=== PATIENT | female | born 1940 | race Caucasian/White ===

== ENCOUNTER 2016-08-24 15:18 | Observation (INO) | payer MEDICARE, MEDICAID ==
[~2016-08-24] VITALS: Ht 154.9 cm; Wt 50.3 kg
[~2016-08-24 15:18] MED LIST: ACET-1757 PO; ACET325T21 PO; ALBU2.5V NPPB; ALBU2.5V11 NEB; ALBU8.5H3 IH; ALPR-475 PO; AMLO10TA2 PO; ASPI1TAB30 PO; ATOR10TA PO; AZIT-14 PO; AZIT500T4 PO; BIFI4CAP PO; BISA10SU2 PR; BISA10SU65 PR; CALC1TAB84 PO; CEFD300C2 PO; CITA20TA9 PO; CLOP75TA22 PO; DIVA125T2 PO; DOCU-30 PO; DOCU100C8 PO; DOXY100T PO; ESOM20CA PO; FURO40TA6 PO; GUAI5SYR PO; HALO2TAB PO; HEPA5000 SQ; HEPA500024 SQ; HYDR-3240 PO; HYDR-3307 PO; HYDR25TA6 PO; IPRA3AMP NPPB; LISI-170 PO; LISI-466 PO; LISI5TAB7 PO; MAGN400T36 PO; MULT-658 PO; NICO1PAT10 TD; OMEP-110 PO; OMEP20TA62 PO; ONDA4TAB10 PO; OXYC-229 PO; OXYC10TA6 PO; OXYGEN INH; POLY454P4 PO; TIOT18CA INH; VITA1TAB42 PO
[2016-08-24] MEDS ORDERED: HYDROcodone/APAP 10/325 MG TABLET PO PRN (16:30)
[2016-08-24] MEDS ORDERED: ONDANSETRON 2MG/ML, 2ML IVPush ONE (16:30)
[2016-08-24] MEDS ORDERED: SODIUM CHLORIDE FLUSH 10ML SYR IVF ONE (16:30)
[2016-08-24] MEDS ORDERED: HYDROcodone/APAP 10/325 MG TABLET ONE (16:41)
[2016-08-24] MEDS ORDERED: ONDANSETRON 2MG/ML, 2ML ONE (16:41)
[2016-08-24 17:04] LABS: ASPARTATE AMINO TRANSFERASE 21 U/L (15-37); BLOOD UREA NITROGEN 14 mg/dL (7-18)
[2016-08-24 17:12] LABS: IS PT STATUS REG ER OR PRE ER? YES
[2016-08-24] MEDS ORDERED: SODIUM CHLORIDE FLUSH 10ML SYR IVF PRN (18:00)
[2016-08-24] MEDS ORDERED: REGADENOSON 0.4 MG/5 ML SYRINGE IVPush ONE (18:30)
[2016-08-24] MEDS ORDERED: NITROGLYCERIN 0.4 MG BOTTLE (25 TABS) SL PRN (18:30)
[2016-08-24] MEDS ORDERED: DOCUSATE 100 MG CAPSULE PO PRN (18:30)
[2016-08-24] MEDS ORDERED: TEMPLATE NON-FORMULARY MED. ([Oxygen] 2 L) INH SCH (18:30)
[2016-08-24] MEDS ORDERED: ONDANSETRON ODT 4 MG PO PRN (18:30)
[2016-08-24] MEDS ORDERED: POLYETHYLENE GLYCOL 17 GM PACKET PO PRN (18:30)
[2016-08-24] MEDS ORDERED: TEMAZEPAM 15 MG CAPSULE PO PRN (18:30)
[2016-08-24] MEDS ORDERED: POLYETHYLENE GLYCOL 17 GM PO PRN (18:30)
[2016-08-24] MEDS ORDERED: ACETAMINOPHEN 325 MG TABLET PO PRN (18:30)
[2016-08-24] MEDS ORDERED: ALBUTEROL SULFATE 2.5MG/0.5ML NEB PRN (18:30)
[2016-08-24 20:29] VITALS: BP 137/57
[2016-08-24] MEDS ORDERED: HYDROcodone/APAP 5/325 TABLET PO SCH (21:00)
[2016-08-24] MEDS ORDERED: TEMPLATE NON-FORMULARY MED. (Albuterol Sulfate (Proair Hfa) 1 PUFF) IH SCH (21:00)
[2016-08-24] MEDS ORDERED: ATORVASTATIN 10 MG TABLET PO SCH (21:00)
[2016-08-24 21:04] LABS: IS PT STATUS REG ER OR PRE ER? NO
[2016-08-24] MEDS ORDERED: CLOPIDOGREL 75 MG TABLET PO SCH (21:30)
[2016-08-24] MEDS: IPRATROPIUM 0.5 MG/2.5 ML INHA HHN SCH (22:05)
[2016-08-24] MEDS: CALCIUM/VITAMIN D3 250-125 TABLET PO SCH (23:04)
[2016-08-24] MEDS: HYDROcodone/APAP 10/325 MG TABLET PO PRN (23:04)
[2016-08-24] MEDS: HEPARIN 5,000 UNITS/ML, 1ML SQ SCH (23:04)
[2016-08-25 01:34] VITALS: BP 177/70
[2016-08-25 02:31] LABS: BLOOD UREA NITROGEN 20 mg/dL (7-18)
[2016-08-25] MEDS: IPRATROPIUM 0.5 MG/2.5 ML INHA HHN SCH ×3 (03:00→14:30)
[2016-08-25 03:07] LABS: IS PT STATUS REG ER OR PRE ER? NO
[2016-08-25 06:54] VITALS: BP 208/74
[2016-08-25 07:20] VITALS: BP 176/66
[2016-08-25 07:50] VITALS: BP 151/61
[2016-08-25] MEDS ORDERED: REGADENOSON 0.4 MG/5 ML SYRINGE ONE (08:18)
[2016-08-25] MEDS ORDERED: CLOPIDOGREL 75 MG TABLET PO SCH (09:00)
[2016-08-25] MEDS ORDERED: TEMPLATE NON-FORMULARY MED. (Bifidobacterium Infantis** (Align**) 4 MG) PO SCH (09:00)
[2016-08-25] MEDS ORDERED: MULTIVITS,STRESS FORMULA 1 TABLET PO SCH (09:00)
[2016-08-25] MEDS: SENNA/DOCUSATE TABLET PO SCH ×2 (10:15→14:34)
[2016-08-25] MEDS: AMLODIPINE 5 MG TABLET PO SCH ×2 (10:15→15:52)
[2016-08-25] MEDS: CALCIUM/VITAMIN D3 250-125 TABLET PO SCH ×2 (10:15→14:34)
[2016-08-25] MEDS: MULTIVITAMIN 1 TABLET PO SCH ×2 (10:15→14:35)
[2016-08-25] MEDS: MAGNESIUM OXIDE 400 MG TABLET PO SCH ×2 (10:16→14:34)
[2016-08-25] MEDS: OMEPRAZOLE 20 MG CAPSULE.DR PO SCH ×2 (10:16→14:34)
[2016-08-25] MEDS: LISINOPRIL 5 MG TABLET PO SCH ×2 (10:16→14:35)
[2016-08-25] MEDS: HEPARIN 5,000 UNITS/ML, 1ML SQ SCH ×2 (10:17→14:35)
[2016-08-25] MEDS ORDERED: ENALAPRILAT 1.25 MG/ML, 2ML IVPush PRN (11:00)
[2016-08-25 14:00] VITALS: BP 170/76
[2016-08-25] MEDS: HYDROcodone/APAP 10/325 MG TABLET PO PRN (14:34)
[2016-08-25] MEDS ORDERED: CITA10TA8 PO (14:38)
[2016-08-25 14:54] LABS: PATH.CAST-FLAG NOT PRESENT; SPERM-FLAG NOT PRESENT; SRC-FLAG NOT PRESENT; XTAL-FLAG NOT PRESENT; YLC-FLAG NOT PRESENT
[2016-08-25] MEDS ORDERED: LISI5TAB7 PO (14:57)
[2016-08-25] MEDS ORDERED: LISINOPRIL 5 MG TABLET PO ONE (15:00)
[2016-08-26] MEDS ORDERED: LISINOPRIL 10 MG TABLET PO SCH (09:00)
== END 2016-08-25 18:17 | disposition home or self-care (01) ==
LOC: ED 17:46 → UNDOADMOB 17:47 → INTOOBSV 17:47 → EDIP 17:47 → ED 17:52 → EDIP 18:04 → 5SO 20:19
PROVIDERS: ADMIT Internal Medicine; ATTEND Internal Medicine
DX: R07.89 Other chest pain (principal); J44.9 Chronic obstructive pulmonary disease, unspecified; J96.10 Chronic respiratory failure, unspecified whether with hypoxia or hypercapnia; R53.81 Other malaise; R53.1 Weakness; I25.110 Atherosclerotic heart disease of native coronary artery with unstable angina pectoris; G20 Parkinson's disease; I10 Essential (primary) hypertension; E78.5 Hyperlipidemia, unspecified; R29.6 Repeated falls; M54.2 Cervicalgia; G89.29 Other chronic pain; F17.210 Nicotine dependence, cigarettes, uncomplicated; I25.2 Old myocardial infarction; M54.9 Dorsalgia, unspecified; Z95.5 Presence of coronary angioplasty implant and graft; Z85.3 Personal history of malignant neoplasm of breast; Z98.890 Other specified postprocedural states; Z82.49 Family history of ischemic heart disease and other diseases of the circulatory system; Z90.13 Acquired absence of bilateral breasts and nipples; Z99.81 Dependence on supplemental oxygen
CPT/HCPCS: 36415; 71010; 78452; 80048; 80053; 81001; 82607; 83690; 83735; 83880; 84484; 85025; 93005; 93017; 93880; 94640; 96372; 99285; A9502; C9898; G0378; J1644; J2785; Q0162; J7644

== ENCOUNTER 2016-12-01 19:56 | Inpatient (IN) | payer MEDICARE, MEDICAID ==
[~2016-12-01] VITALS: Ht 157.5 cm; Wt 47.8 kg
[~2016-12-01 19:56] MED LIST changes: -AZIT-14 PO; +AZIT250T89 PO; -AZIT500T4 PO; +AZIT500T77 PO; -CEFD300C2 PO; +CEFD300C37 PO; +CITA10TA8 PO
[2016-12-01] MEDS ORDERED: ONDANSETRON ODT 4 MG ONE (20:06)
[2016-12-01] MEDS ORDERED: SODIUM CHLORIDE 0.9% 1,000ML IVBOLUS ONE (20:30)
[2016-12-01] MEDS ORDERED: ONDANSETRON ODT 4 MG PO ONE (20:30)
[2016-12-01] MEDS ORDERED: SODIUM CHLORIDE FLUSH 10ML SYR IVF ONE (20:30)
[2016-12-01 20:54] LABS: ASPARTATE AMINO TRANSFERASE 27 U/L (15-37); BLOOD UREA NITROGEN 18 mg/dL (7-18)
[2016-12-01] MEDS ORDERED: METOCLOPRAMIDE 5 MG/ML, 2ML IVPush ONE (23:00)
[2016-12-01] MEDS ORDERED: MORPHINE SULFATE 4 MG/ML, 1ML IVPush ONE (23:00)
[2016-12-01] MEDS ORDERED: MORPHINE SULFATE 4 MG/ML, 1ML ONE (23:07)
[2016-12-01] MEDS ORDERED: METOCLOPRAMIDE 5 MG/ML, 2ML ONE (23:08)
[2016-12-01] MEDS ORDERED: BIFI4CAP PO (23:17)
[2016-12-01] MEDS ORDERED: CITA20TA9 PO (23:17)
[2016-12-01] MEDS ORDERED: NITR100C PO (23:17)
[2016-12-01] MEDS ORDERED: MAGN250T8 PO (23:17)
[2016-12-01] MEDS ORDERED: VITA100T PO (23:17)
[2016-12-01] MEDS ORDERED: LISI-167 PO (23:17)
[2016-12-01] MEDS ORDERED: CLOP75TA PO (23:17)
[2016-12-01] MEDS ORDERED: IBUP200C PO (23:17)
[2016-12-01] MEDS ORDERED: vitafusion PO (23:17)
[2016-12-01] MEDS ORDERED: METH5TAB2 PO (23:17)
[2016-12-01] MEDS ORDERED: PROMETHAZINE 25 MG/ML, 1ML IM PRN (23:30)
[2016-12-01] MEDS ORDERED: morphine SULFATE 10 MG/ML, 1ML IVPush PRN (23:30)
[2016-12-01] MEDS ORDERED: POLYETHYLENE GLYCOL 17 GM PACKET PO PRN (23:30)
[2016-12-01] MEDS ORDERED: ACETAMINOPHEN 325 MG TABLET PO PRN (23:30)
[2016-12-01] MEDS ORDERED: DOCUSATE 100 MG CAPSULE PO PRN (23:30)
[2016-12-01] MEDS ORDERED: TEMPLATE NON-FORMULARY MED. ([Oxygen] 2 L) INH SCH (23:30)
[2016-12-01] MEDS ORDERED: ALBUTEROL SULFATE 2.5MG/0.5ML NEB PRN (23:30)
[2016-12-01] MEDS ORDERED: hydrALAzine 20 MG/ML, 1ML IV PRN (23:30)
[2016-12-01] MEDS ORDERED: ASA/APAP/ CAFFEINE TABLET PO PRN (23:30)
[2016-12-01] MEDS ORDERED: LABETALOL 5MG/ML, 20ML IVPush PRN (23:30)
[2016-12-01] MEDS: NICOTINE 7 MG/24 HR PATCH.TD24 TD SCH (23:30)
[2016-12-01] MEDS ORDERED: ENALAPRILAT 1.25 MG/ML, 2ML IV PRN (23:30)
[2016-12-01] MEDS ORDERED: hydrALAzine 20 MG/ML, 1ML ONE (23:55)
[2016-12-02] MEDS ORDERED: ALBUTEROL/IPRATROPIUM 2.5MG/0.5MG, 3 ML ONE (00:54)
[2016-12-02 00:55] VITALS: BP 169/68
[2016-12-02] MEDS: NS + 20MEQ KCL 1,000 ML IV SCH ×2 (01:21→10:15)
[2016-12-02] MEDS: ONDANSETRON 2MG/ML, 2ML IVPush PRN (01:23)
[2016-12-02] MEDS ORDERED: ALBUTEROL/IPRATROPIUM 2.5MG/0.5MG, 3 ML NPPB PRN (02:00)
[2016-12-02 05:29] LABS: BLOOD UREA NITROGEN 16 mg/dL (7-18)
[2016-12-02 08:20] VITALS: BP 186/85
[2016-12-02] MEDS: IPRATROPIUM 0.5 MG/2.5 ML INHA HHN SCH ×2 (09:00→15:00)
[2016-12-02] MEDS ORDERED: HYDROcodone/APAP 5/325 TABLET PO SCH (09:00)
[2016-12-02] MEDS ORDERED: TEMPLATE NON-FORMULARY MED. (Albuterol Sulfate (Proair Hfa) 1 PUFF) IH SCH (09:00)
[2016-12-02] MEDS: MULTIVITAMIN 1 TABLET PO SCH (09:19)
[2016-12-02] MEDS: FAMOTIDINE 20 MG TABLET PO SCH ×2 (09:19→23:41)
[2016-12-02] MEDS: LISINOPRIL 10 MG TABLET PO SCH (09:19)
[2016-12-02] MEDS: HYDROcodone/APAP 5/325 TABLET PO PRN ×4 (09:19→22:42)
[2016-12-02] MEDS: CLOPIDOGREL 75 MG TABLET PO SCH (09:19)
[2016-12-02] MEDS: AMLODIPINE 5 MG TABLET PO SCH (09:19)
[2016-12-02] MEDS: MAGNESIUM OXIDE 400 MG TABLET PO SCH (09:19)
[2016-12-02] MEDS: ALBUTEROL/IPRATROPIUM 2.5MG/0.5MG, 3 ML NPPB SCH ×3 (09:56→20:47)
[2016-12-02 12:18] LABS: OCCBLD OBC PASS
[2016-12-02] MEDS: CITALOPRAM 10 MG TABLET PO SCH (14:13)
[2016-12-02 14:30] VITALS: BP 154/74
[2016-12-02] MEDS ORDERED: METHADONE 5 MG TABLET PO SCH (15:00)
[2016-12-02 20:38] VITALS: BP 153/56
[2016-12-02] MEDS: NICOTINE 7 MG/24 HR PATCH.TD24 TD SCH (22:42)
[2016-12-02] MEDS: ATORVASTATIN 10 MG TABLET PO SCH (23:41)
[2016-12-03 02:14] VITALS: BP 137/58
[2016-12-03] MEDS: ALBUTEROL/IPRATROPIUM 2.5MG/0.5MG, 3 ML NPPB SCH ×4 (02:31→21:00)
[2016-12-03] MEDS: HYDROcodone/APAP 5/325 TABLET PO PRN ×4 (05:19→20:01)
[2016-12-03 06:10] LABS: BLOOD UREA NITROGEN 8 mg/dL (7-18)
[2016-12-03] MEDS ORDERED: POTASSIUM CHLORIDE 10 MEQ TABLET.ER ONE (08:26)
[2016-12-03] MEDS ORDERED: POTASSIUM CHLORIDE 20 MEQ TAB.ER.PRT PO ONE (08:30)
[2016-12-03] MEDS: LISINOPRIL 10 MG TABLET PO SCH (08:44)
[2016-12-03] MEDS: MULTIVITAMIN 1 TABLET PO SCH (08:44)
[2016-12-03] MEDS: MAGNESIUM OXIDE 400 MG TABLET PO SCH (08:44)
[2016-12-03] MEDS: FAMOTIDINE 20 MG TABLET PO SCH ×2 (08:44→20:02)
[2016-12-03] MEDS: AMLODIPINE 5 MG TABLET PO SCH (08:44)
[2016-12-03] MEDS: CLOPIDOGREL 75 MG TABLET PO SCH (08:44)
[2016-12-03 10:14] VITALS: BP 187/76
[2016-12-03] MEDS: CITALOPRAM 10 MG TABLET PO SCH (11:01)
[2016-12-03 14:24] VITALS: BP 138/72
[2016-12-03] MEDS: ATORVASTATIN 10 MG TABLET PO SCH (20:01)
[2016-12-03] MEDS: NICOTINE 7 MG/24 HR PATCH.TD24 TD SCH (20:02)
[2016-12-03 20:11] VITALS: BP 97/56
[2016-12-03 21:46] VITALS: BP 113/52
[2016-12-04] MEDS: HYDROcodone/APAP 5/325 TABLET PO PRN ×3 (00:06→11:48)
[2016-12-04 02:10] VITALS: BP 127/65
[2016-12-04] MEDS: ALBUTEROL/IPRATROPIUM 2.5MG/0.5MG, 3 ML NPPB SCH ×2 (03:00→07:37)
[2016-12-04] MEDS ORDERED: POTASSIUM CHLORIDE 20 MEQ TAB.ER.PRT PO ONE (07:30)
[2016-12-04] MEDS: AMLODIPINE 5 MG TABLET PO SCH (07:43)
[2016-12-04] MEDS: FAMOTIDINE 20 MG TABLET PO SCH (07:43)
[2016-12-04] MEDS: CLOPIDOGREL 75 MG TABLET PO SCH (07:43)
[2016-12-04] MEDS: MAGNESIUM OXIDE 400 MG TABLET PO SCH (07:43)
[2016-12-04] MEDS: MULTIVITAMIN 1 TABLET PO SCH (07:43)
[2016-12-04] MEDS: LISINOPRIL 10 MG TABLET PO SCH (07:43)
[2016-12-04 07:59] VITALS: BP 183/70
[2016-12-04 09:40] LABS: BLOOD UREA NITROGEN 20 mg/dL (7-18)
[2016-12-04] MEDS ORDERED: ONDANSETRON ODT 4 MG ONE (11:17)
[2016-12-04] MEDS: CITALOPRAM 10 MG TABLET PO SCH (11:17)
[2016-12-04] MEDS: ONDANSETRON 2MG/ML, 2ML IVPush PRN (11:18)
== END 2016-12-04 15:32 | disposition home or self-care (01) | DRG 392 ==
LOC: ED 20:50 → EDIP 22:58 → SUATTDRO 22:59 → 3NE 12-02 00:17
PROVIDERS: ADMIT Family Medicine; ATTEND Family Medicine
DX: A08.4 Viral intestinal infection, unspecified (principal); J44.9 Chronic obstructive pulmonary disease, unspecified; I16.0 Hypertensive urgency; E86.0 Dehydration; E87.6 Hypokalemia; G89.29 Other chronic pain; M54.2 Cervicalgia; F17.200 Nicotine dependence, unspecified, uncomplicated; I10 Essential (primary) hypertension; J98.4 Other disorders of lung; I25.10 Atherosclerotic heart disease of native coronary artery without angina pectoris; J32.9 Chronic sinusitis, unspecified; Z66 Do not resuscitate; Z82.49 Family history of ischemic heart disease and other diseases of the circulatory system; Z85.3 Personal history of malignant neoplasm of breast; Z90.13 Acquired absence of bilateral breasts and nipples; Z87.01 Personal history of pneumonia (recurrent); Z79.899 Other long term (current) drug therapy; Z79.02 Long term (current) use of antithrombotics/antiplatelets; Z88.0 Allergy status to penicillin; I25.2 Old myocardial infarction; Z88.2 Allergy status to sulfonamides; Z88.1 Allergy status to other antibiotic agents; Z88.8 Allergy status to other drugs, medicaments and biological substances
CPT/HCPCS: 36415; 71010; 74176; 80048; 80053; 81003; 82272; 83690; 83735; 85025; 87046; 87324; 89055; 93005; 94640; 96374; 96375; J2405; J3480; J7620; Q0162; J0360; J2270; J2765; J7030

== ENCOUNTER 2017-03-30 13:11 | Inpatient (IN) | payer MEDICARE, MEDICAID ==
[~2017-03-30] VITALS: Ht 154.9 cm; Wt 47.6 kg
[~2017-03-30 13:11] MED LIST changes: -ALBU8.5H3 IH; +ALBU8.5H8 IH; -ASPI1TAB30 PO; +ASPI1TAB31 PO; +AZIT500T5 PO; -AZIT500T77 PO; +CLOP75TA PO; -CLOP75TA22 PO; +CLOP75TA52 PO; +DOCU-131 PO; -DOCU-30 PO; +DOCU100C33 PO; -DOCU100C8 PO; -HEPA5000 SQ; +HEPA50002 SQ; +IBUP200C5 PO; +LISI-167 PO; +MAGN250T8 PO; +METH5TAB2 PO; +NICO-485 TD; -NICO1PAT10 TD; +NITR100C PO; -OXYC-229 PO; +OXYC-307 PO; +VITA100T PO; +vitafusion PO
[2017-03-30] MEDS ORDERED: ACETAMINOPHEN 500 MG TABLET PO ONE (13:30)
[2017-03-30 14:59] LABS: HEMATOCRIT 37.7 % (34.6-47.8); HEMOGLOBIN 12.8 g/dL (11.7-16.4); WHITE BLOOD COUNT 7.7 x10^3/uL (3.4-10)
[2017-03-30] MEDS ORDERED: CYCLOPENTOLATE OPHTH SOLN 1%, 15ML OP ONE (15:00)
[2017-03-30 15:12] LABS: BLOOD UREA NITROGEN 18 mg/dL (7-18)
[2017-03-30] MEDS ORDERED: ACETAMINOPHEN 325 MG TABLET PO PRN (17:00)
[2017-03-30] MEDS ORDERED: LORazepam 2 MG/ML, 1ML ONE (17:05)
[2017-03-30] MEDS ORDERED: LORazepam 2 MG/ML, 1ML IM ONE (17:15)
[2017-03-30] MEDS ORDERED: LORazepam 2 MG/ML, 1ML IM PRN (18:30)
[2017-03-30] MEDS ORDERED: HALOPERIDOL 5 MG/ML IM PRN (18:30)
[2017-03-30 20:19] VITALS: BP 166/82
[2017-03-30] MEDS: ENOXAPARIN 40 MG/0.4 ML SQ SCH (20:38)
[2017-03-30] MEDS: SODIUM CHLORIDE 0.9% 1,000 ML IV SCH (20:38)
[2017-03-30] MEDS: NICOTINE 21 MG/24 HR PATCH.TD24 TD SCH (20:39)
[2017-03-31] VITALS (7 sets, daily range): BP systolic 127–197; BP diastolic 61–98
[2017-03-31] MEDS: HYDROcodone/APAP 5/325 TABLET PO PRN ×6 (01:42→22:24)
[2017-03-31 06:13] LABS: HEMATOCRIT 36.4 % (34.6-47.8); HEMOGLOBIN 12.2 g/dL (11.7-16.4); WHITE BLOOD COUNT 7.3 x10^3/uL (3.4-10)
[2017-03-31 06:43] LABS: ASPARTATE AMINO TRANSFERASE 16 U/L (15-37); BLOOD UREA NITROGEN 16 mg/dL (7-18)
[2017-03-31] MEDS: hydrALAzine 20 MG/ML, 1ML IVPush PRN ×2 (10:27→18:49)
[2017-03-31] MEDS: SODIUM CHLORIDE 0.9% 1,000 ML IV SCH ×2 (10:36→22:24)
[2017-03-31] MEDS: ONDANSETRON 2MG/ML, 2ML IVPush PRN ×2 (13:17→18:48)
[2017-03-31] MEDS: NICOTINE 21 MG/24 HR PATCH.TD24 TD SCH (19:14)
[2017-03-31] MEDS: morphine SULFATE 10 MG/ML, 1ML IVPush PRN (20:34)
[2017-03-31] MEDS: LISINOPRIL 20 MG TABLET PO SCH (22:24)
[2017-03-31] MEDS: ENOXAPARIN 40 MG/0.4 ML SQ SCH (22:24)
[2017-03-31] MEDS ORDERED: PROMETHAZINE 25 MG/ML, 1ML ONE (23:09)
[2017-03-31] MEDS: PROMETHAZINE 25 MG/ML, 1ML IM PRN (23:13)
[2017-03-31] MEDS ORDERED: ALUMINUM/MAG/SIMETHICONE 30 ML UDC PO PRN (23:30)
[2017-04-01] VITALS (7 sets, daily range): BP systolic 109–179; BP diastolic 54–68
[2017-04-01] MEDS: HYDROcodone/APAP 5/325 TABLET PO PRN ×4 (02:32→21:49)
[2017-04-01] MEDS: hydrALAzine 20 MG/ML, 1ML IVPush PRN (03:44)
[2017-04-01] MEDS: PROMETHAZINE 25 MG/ML, 1ML IM PRN ×2 (04:41→23:00)
[2017-04-01] MEDS: LISINOPRIL 20 MG TABLET PO SCH ×2 (08:53→21:49)
[2017-04-01] MEDS: POLYETHYLENE GLYCOL 17 GM PACKET PO PRN (13:50)
[2017-04-01] MEDS: SODIUM CHLORIDE 0.9% 1,000 ML IV SCH (16:32)
[2017-04-01] MEDS: NICOTINE 21 MG/24 HR PATCH.TD24 TD SCH (18:00)
[2017-04-01] MEDS: ENOXAPARIN 40 MG/0.4 ML SQ SCH (21:49)
[2017-04-01] MEDS: morphine SULFATE 10 MG/ML, 1ML IVPush PRN (22:59)
[2017-04-02 04:41] VITALS: BP 156/70
[2017-04-02] MEDS: SODIUM CHLORIDE 0.9% 1,000 ML IV SCH ×2 (05:56→19:45)
[2017-04-02] MEDS: METOPROLOL SUCCINATE 50 MG TAB.ER.24H PO SCH (05:57)
[2017-04-02] MEDS: HYDROcodone/APAP 5/325 TABLET PO PRN ×3 (06:06→14:16)
[2017-04-02 06:42] VITALS: BP 161/63
[2017-04-02] MEDS: LISINOPRIL 20 MG TABLET PO SCH ×2 (09:10→21:10)
[2017-04-02 13:21] VITALS: BP 123/62
[2017-04-02] MEDS: NICOTINE 21 MG/24 HR PATCH.TD24 TD SCH (17:10)
[2017-04-02 20:55] VITALS: BP 133/68
[2017-04-02] MEDS: HYDROcodone/APAP 10/325 MG TABLET PO PRN (21:10)
[2017-04-02] MEDS: ENOXAPARIN 40 MG/0.4 ML SQ SCH (21:14)
[2017-04-03 01:09] VITALS: BP 116/47
[2017-04-03] MEDS: HYDROcodone/APAP 10/325 MG TABLET PO PRN ×6 (02:36→22:15)
[2017-04-03] MEDS: METOPROLOL SUCCINATE 50 MG TAB.ER.24H PO SCH (06:27)
[2017-04-03 06:28] VITALS: BP 130/66
[2017-04-03 06:44] VITALS: BP 130/66
[2017-04-03] MEDS: LISINOPRIL 20 MG TABLET PO SCH ×2 (09:59→20:57)
[2017-04-03] MEDS: POLYETHYLENE GLYCOL 17 GM PACKET PO PRN (09:59)
[2017-04-03] MEDS: SODIUM CHLORIDE 0.9% 1,000 ML IV SCH (09:59)
[2017-04-03 13:40] VITALS: BP 177/55
[2017-04-03] MEDS: NICOTINE 21 MG/24 HR PATCH.TD24 TD SCH (16:59)
[2017-04-03] MEDS ORDERED: ALBUTEROL/IPRATROPIUM 2.5MG/0.5MG, 3 ML ONE (19:52)
[2017-04-03] MEDS: ALBUTEROL/IPRATROPIUM 2.5MG/0.5MG, 3 ML NPPB SCH (19:55)
[2017-04-03 20:08] VITALS: BP 155/70
[2017-04-03] MEDS: ENOXAPARIN 40 MG/0.4 ML SQ SCH (20:57)
[2017-04-04 00:31] VITALS: BP 149/68
[2017-04-04] MEDS: METOPROLOL SUCCINATE 50 MG TAB.ER.24H PO SCH (05:55)
[2017-04-04 06:43] VITALS: BP 191/72
[2017-04-04] MEDS: ALBUTEROL/IPRATROPIUM 2.5MG/0.5MG, 3 ML NPPB SCH ×4 (07:32→19:41)
[2017-04-04] MEDS: LISINOPRIL 20 MG TABLET PO SCH ×2 (09:24→21:00)
[2017-04-04] MEDS: HYDROcodone/APAP 10/325 MG TABLET PO PRN ×4 (09:24→21:57)
[2017-04-04] MEDS: hydrALAzine 20 MG/ML, 1ML IVPush PRN (09:25)
[2017-04-04] MEDS: POLYETHYLENE GLYCOL 17 GM PACKET PO PRN (09:25)
[2017-04-04] MEDS ORDERED: NICO-487 TD (09:33)
[2017-04-04] MEDS ORDERED: AMLO5TAB4 PO (09:33)
[2017-04-04] MEDS ORDERED: METO-93 PO (09:33)
[2017-04-04] MEDS ORDERED: LISI-170 PO (09:33)
[2017-04-04] MEDS: PROMETHAZINE 25 MG/ML, 1ML IM PRN (09:45)
[2017-04-04 10:30] VITALS: BP 130/63
[2017-04-04] MEDS ORDERED: DIPHENHYDRAMINE 50 MG/ML, 1ML ONE (12:43)
[2017-04-04] MEDS ORDERED: FLU VACC QS2017-18 (36MOS+) UP/PF 0.5 ML IM-VACC ONE (13:00)
[2017-04-04] MEDS ORDERED: DIPHENHYDRAMINE 50 MG/ML, 1ML IVPush ONE (13:00)
[2017-04-04] MEDS ORDERED: DIPHENHYDRAMINE 25 MG CAPSULE PO ONE (13:00)
[2017-04-04 13:49] VITALS: BP 111/70
[2017-04-04] MEDS: NICOTINE 21 MG/24 HR PATCH.TD24 TD SCH (18:00)
[2017-04-04 19:34] VITALS: BP 101/59
[2017-04-04] MEDS: ENOXAPARIN 40 MG/0.4 ML SQ SCH ×2 (21:00→21:58)
[2017-04-05 01:16] VITALS: BP 147/68
[2017-04-05] MEDS: HYDROcodone/APAP 10/325 MG TABLET PO PRN ×5 (02:08→20:36)
[2017-04-05] MEDS: METOPROLOL SUCCINATE 50 MG TAB.ER.24H PO SCH (05:02)
[2017-04-05 06:36] VITALS: BP 196/76
[2017-04-05] MEDS: ALBUTEROL/IPRATROPIUM 2.5MG/0.5MG, 3 ML NPPB SCH ×6 (07:30→20:00)
[2017-04-05] MEDS: LISINOPRIL 20 MG TABLET PO SCH ×2 (07:43→20:37)
[2017-04-05 12:18] VITALS: BP 188/97
[2017-04-05] MEDS: POLYETHYLENE GLYCOL 17 GM PACKET PO PRN (12:55)
[2017-04-05 13:00] VITALS: BP 188/78
[2017-04-05] MEDS ORDERED: ENALAPRILAT 1.25 MG/ML, 2ML IV PRN (14:30)
[2017-04-05] MEDS: NICOTINE 21 MG/24 HR PATCH.TD24 TD SCH (16:42)
[2017-04-05 17:20] VITALS: BP 168/78
[2017-04-05 20:01] VITALS: BP 127/60
[2017-04-05] MEDS: ENOXAPARIN 40 MG/0.4 ML SQ SCH (20:36)
[2017-04-05] MEDS: AMLODIPINE 5 MG TABLET PO SCH (20:37)
[2017-04-06] MEDS: HYDROcodone/APAP 10/325 MG TABLET PO PRN ×6 (00:21→23:58)
[2017-04-06 00:45] VITALS: BP 179/66
[2017-04-06 02:32] VITALS: BP 107/48
[2017-04-06] MEDS: METOPROLOL SUCCINATE 50 MG TAB.ER.24H PO SCH (05:55)
[2017-04-06] MEDS: ALBUTEROL/IPRATROPIUM 2.5MG/0.5MG, 3 ML NPPB SCH ×4 (06:54→17:32)
[2017-04-06 07:45] VITALS: BP 165/64
[2017-04-06] MEDS: AMLODIPINE 5 MG TABLET PO SCH ×2 (09:58→20:09)
[2017-04-06] MEDS: LISINOPRIL 20 MG TABLET PO SCH ×2 (09:58→20:01)
[2017-04-06 13:21] VITALS: BP 118/55
[2017-04-06] MEDS: POLYETHYLENE GLYCOL 17 GM PACKET PO PRN (14:26)
[2017-04-06] MEDS: NICOTINE 21 MG/24 HR PATCH.TD24 TD SCH (18:00)
[2017-04-06 19:36] VITALS: BP 109/61
[2017-04-06] MEDS: ENOXAPARIN 40 MG/0.4 ML SQ SCH (20:09)
[2017-04-07] MEDS ORDERED: DIPHENHYDRAMINE 50 MG CAPSULE PO ONE
[2017-04-07 03:13] VITALS: BP 113/56
[2017-04-07] MEDS: METOPROLOL SUCCINATE 50 MG TAB.ER.24H PO SCH (05:45)
[2017-04-07 07:17] VITALS: BP 144/61
[2017-04-07] MEDS: ALBUTEROL/IPRATROPIUM 2.5MG/0.5MG, 3 ML NPPB SCH ×2 (07:30→10:50)
[2017-04-07] MEDS: LISINOPRIL 20 MG TABLET PO SCH (09:00)
[2017-04-07] MEDS: HYDROcodone/APAP 10/325 MG TABLET PO PRN (09:00)
[2017-04-07] MEDS: AMLODIPINE 5 MG TABLET PO SCH (09:00)
[2017-04-07] MEDS ORDERED: AMLO10TA2 PO (11:15)
[2017-04-07] MEDS ORDERED: NICO-487 TD (11:18)
[2017-04-07] MEDS: PROMETHAZINE 25 MG/ML, 1ML IM PRN (12:23)
== END 2017-04-07 12:45 | disposition home or self-care (01) | DRG 70 ==
LOC: ED 15:51 → EDIP 15:52 → SUATTDRO 16:04 → ED 16:50 → 4EST 17:40 → 3NW 04-02 10:47
PROVIDERS: ADMIT Family Medicine; ATTEND Internal Medicine
PROC: 0T9B70Z Drainage of Bladder with Drainage Device, Via Natural or Artificial Opening (ICD-10-PCS; principal; 2017-03-30)
DX: G93.41 Metabolic encephalopathy (principal); J96.20 Acute and chronic respiratory failure, unspecified whether with hypoxia or hypercapnia; Z99.81 Dependence on supplemental oxygen; J44.9 Chronic obstructive pulmonary disease, unspecified; M41.9 Scoliosis, unspecified; I10 Essential (primary) hypertension; E78.5 Hyperlipidemia, unspecified; I25.10 Atherosclerotic heart disease of native coronary artery without angina pectoris; H91.90 Unspecified hearing loss, unspecified ear; M16.11 Unilateral primary osteoarthritis, right hip; R47.02 Dysphasia; Z79.891 Long term (current) use of opiate analgesic; Z80.3 Family history of malignant neoplasm of breast; Z85.3 Personal history of malignant neoplasm of breast; Z87.440 Personal history of urinary (tract) infections; Z87.442 Personal history of urinary calculi; Z87.891 Personal history of nicotine dependence; Z90.13 Acquired absence of bilateral breasts and nipples; Z90.710 Acquired absence of both cervix and uterus; Z91.81 History of falling; Z95.5 Presence of coronary angioplasty implant and graft; Z99.3 Dependence on wheelchair; Z79.899 Other long term (current) drug therapy; Z88.0 Allergy status to penicillin; Z88.2 Allergy status to sulfonamides; Z88.8 Allergy status to other drugs, medicaments and biological substances; Z91.041 Radiographic dye allergy status; Z23 Encounter for immunization
CPT/HCPCS: 36415; 70450; 70551; 71010; 76705; 80048; 80053; 81003; 82040; 83735; 84100; 84439; 84443; 85025; 85610; 85651; 87040; 90686; 93005; 94640; 96372; J1650; J2405; J2550; J7620; J0360; J1200; J1630; J2060; J2270; J7030

== ENCOUNTER 2017-04-18 10:35 | Inpatient (IN) | payer MEDICARE, MEDICAID ==
[~2017-04-18] VITALS: Ht 160 cm; Wt 50.0 kg
[~2017-04-18 10:35] MED LIST changes: +AMLO5TAB4 PO; +METO-93 PO; +NICO-487 TD
[2017-04-18] MEDS ORDERED: SODIUM CHLORIDE 0.9% 1,000 ML IV ONE (11:33)
[2017-04-18] MEDS ORDERED: SODIUM CHLORIDE FLUSH 10ML SYR IVF ONE (12:00)
[2017-04-18 12:04] LABS: BASOPHILS # (AUTO) 0.01 x10^3/uL (0-0.1); BASOPHILS % (AUTO) 0 % (0-1); EOSINOPHILS # (AUTO) 0.01 x10^3/uL (0-0.4); EOSINOPHILS % (AUTO) 0 % (1-7); LYMPHOCYTES # (AUTO) 0.88 x10^3/uL (1-3.4); LYMPHOCYTES % (AUTO) 6 % (22-44); MD NO; MEAN CORPUSCULAR HEMOGLOBIN 33.5 pg (27.0-34.8); MEAN CORPUSCULAR HGB CONC 34.2 g/dL (32.4-35.8); MEAN CORPUSCULAR VOLUME 97.9 fL (80-100); MEAN PLATELET VOLUME 8.8 fL (7.4-10.4); MONOCYTES # (AUTO) 0.78 x10^3/uL (0.2-0.8); MONOCYTES % (AUTO) 5 % (2-9); NEUTROPHILS # (AUTO) 14.14 x10^3/uL (1.8-6.8); NEUTROPHILS % (AUTO) 90 % (42-75); PLATELET COUNT 202 x10^3/uL (130-400); RED CELL DISTRIBUTION WIDTH 15.1 % (9.6-15.2)
[2017-04-18 12:10] LABS: MICROSCOPIC NOT IND
[2017-04-18 12:14] LABS: CULTURE INDICATED? NO
[2017-04-18 12:15] LABS: ALANINE AMINOTRANSFERASE 17 U/L (12-78); ALBUMIN 3.5 g/dL (3.4-5.0); ANION GAP 8 mmol/L (5-15); CALCIUM 8.3 mg/dL (8.5-10.1); CHLORIDE 106 mmol/L (98-107)
[2017-04-18 12:18] LABS: ALKALINE PHOSPHATASE 64 U/L (45-117); BILIRUBIN,TOTAL 0.6 mg/dL (0.2-1.0); CREATININE 0.77 mg/dL (0.55-1.02); TOTAL PROTEIN 6.5 g/dL (6.4-8.2)
[2017-04-18] MEDS ORDERED: SODIUM CHLORIDE 0.9% 1,000ML IVBOLUS ONE (12:30)
[2017-04-18] MEDS: HALOPERIDOL 5 MG/ML IV ONE ×2 (13:00→13:35)
[2017-04-18] MEDS ORDERED: CEFTAZIDIME PMX 2 GM/50ML 50 ML IV ONE (13:00)
[2017-04-18] MEDS ORDERED: ESOM40CA PO (13:22)
[2017-04-18] MEDS ORDERED: HALOPERIDOL 5 MG/ML ONE (13:44)
[2017-04-18 14:00] VITALS: BP 142/52
[2017-04-18] MEDS ORDERED: ACETAMINOPHEN 325 MG TABLET PO PRN (14:00)
[2017-04-18] MEDS: ENOXAPARIN 40 MG/0.4 ML SQ SCH ×2 (14:00→17:09)
[2017-04-18] MEDS ORDERED: HALOPERIDOL 1 MG TABLET PO PRN (14:00)
[2017-04-18] MEDS ORDERED: DOCUSATE 100 MG CAPSULE PO PRN ×2 (14:00)
[2017-04-18] MEDS: NICOTINE 7 MG/24 HR PATCH.TD24 TD SCH (14:00)
[2017-04-18] MEDS ORDERED: ASA/APAP/ CAFFEINE TABLET PO PRN (14:00)
[2017-04-18] MEDS ORDERED: ENALAPRILAT 1.25 MG/ML, 2ML IVPush PRN (14:00)
[2017-04-18] MEDS ORDERED: ALBUTEROL SULFATE 2.5MG/0.5ML NEB PRN (14:00)
[2017-04-18] MEDS ORDERED: ONDANSETRON 2MG/ML, 2ML IVPush PRN (14:00)
[2017-04-18] MEDS ORDERED: BISACODYL 10 MG SUPP PR PRN (14:00)
[2017-04-18] MEDS ORDERED: ONDANSETRON ODT 4 MG PO PRN ×2 (14:00)
[2017-04-18] MEDS ORDERED: HALOPERIDOL 5 MG/ML IM PRN (14:00)
[2017-04-18 14:30] LABS: AMPHETAMINE SCREEN, URINE Negative (Negative); BARBITURATE SCREEN, URINE Negative (Negative); BENZODIAZEPINE SCREEN, URINE Negative (Negative); CANNABINOID SCREEN, URINE Negative (Negative); COCAINE SCREEN, URINE Negative (Negative); METHADONE SCREEN, URINE Negative (Negative); OPIATE SCREEN, URINE Positive (Negative)
[2017-04-18] MEDS ORDERED: ALBUTEROL SULFATE 2.5 MG/3 ML HHN PRN (15:30)
[2017-04-18] MEDS ORDERED: IPRATROPIUM 0.5 MG/2.5 ML INHA HHN SCH (15:30)
[2017-04-18] MEDS ORDERED: ALBUTEROL/IPRATROPIUM 2.5MG/0.5MG, 3 ML ONE (15:50)
[2017-04-18] MEDS ORDERED: HYDR-3307 PO ×2 (16:11)
[2017-04-18] MEDS: ALBUTEROL/IPRATROPIUM 2.5MG/0.5MG, 3 ML NPPB SCH ×2 (16:14→19:50)
[2017-04-18] MEDS ORDERED: ALBUTEROL SULFATE 2.5MG/0.5ML NEB SCH (16:30)
[2017-04-18] MEDS: SODIUM CHLORIDE 0.9% 1,000 ML IV SCH (17:09)
[2017-04-18] MEDS: KETOROLAC 30 MG/1 ML IVPush PRN (17:09)
[2017-04-18] MEDS: HYDROcodone/APAP 10/325 MG TABLET PO PRN (17:09)
[2017-04-18 19:20] VITALS: BP 142/52
[2017-04-18] MEDS: ATORVASTATIN 10 MG TABLET PO SCH (21:00)
[2017-04-18] MEDS: AMLODIPINE 5 MG TABLET PO SCH (21:19)
[2017-04-18] MEDS: LISINOPRIL 20 MG TABLET PO SCH (21:19)
[2017-04-18 22:07] VITALS: BP 163/55
[2017-04-19 03:05] VITALS: BP 168/56
[2017-04-19] MEDS: HYDROcodone/APAP 10/325 MG TABLET PO PRN ×4 (03:11→22:44)
[2017-04-19] MEDS: ALBUTEROL/IPRATROPIUM 2.5MG/0.5MG, 3 ML NPPB SCH ×3 (06:52→20:34)
[2017-04-19 07:48] VITALS: BP 173/63
[2017-04-19] MEDS: PANTOPROZOLE 40MG TABLET PO SCH (07:57)
[2017-04-19] MEDS: SODIUM CHLORIDE 0.9% 1,000 ML IV SCH ×2 (07:58→21:08)
[2017-04-19] MEDS: CITALOPRAM 10 MG TABLET PO SCH (07:58)
[2017-04-19] MEDS: LACTOBACILLUS CHEW TABLET PO SCH (07:58)
[2017-04-19] MEDS: MAGNESIUM OXIDE 400 MG TABLET PO SCH (07:59)
[2017-04-19] MEDS: MULTIVITAMIN 1 TABLET PO SCH (07:59)
[2017-04-19] MEDS: AMLODIPINE 5 MG TABLET PO SCH ×2 (07:59→21:07)
[2017-04-19] MEDS: CLOPIDOGREL 75 MG TABLET PO SCH (07:59)
[2017-04-19] MEDS: MULTIVITS,STRESS FORMULA 1 TABLET PO SCH (08:00)
[2017-04-19] MEDS: LISINOPRIL 20 MG TABLET PO SCH ×2 (08:00→21:08)
[2017-04-19 08:32] LABS: BASOPHILS # (AUTO) 0.01 x10^3/uL (0-0.1); BASOPHILS % (AUTO) 0 % (0-1); EOSINOPHILS # (AUTO) 0.01 x10^3/uL (0-0.4); EOSINOPHILS % (AUTO) 0 % (1-7); LYMPHOCYTES # (AUTO) 1.44 x10^3/uL (1-3.4); LYMPHOCYTES % (AUTO) 15 % (22-44); MD NO; MEAN CORPUSCULAR HEMOGLOBIN 33.4 pg (27.0-34.8); MEAN CORPUSCULAR HGB CONC 33.6 g/dL (32.4-35.8); MEAN CORPUSCULAR VOLUME 99.3 fL (80-100); MEAN PLATELET VOLUME 9.2 fL (7.4-10.4); MONOCYTES # (AUTO) 0.55 x10^3/uL (0.2-0.8); MONOCYTES % (AUTO) 6 % (2-9); NEUTROPHILS # (AUTO) 7.85 x10^3/uL (1.8-6.8); NEUTROPHILS % (AUTO) 80 % (42-75); PLATELET COUNT 177 x10^3/uL (130-400); RED BLOOD COUNT 3.45 x10^6/uL (3.82-5.3); RED CELL DISTRIBUTION WIDTH 15.2 % (9.6-15.2)
[2017-04-19 08:38] LABS: ALBUMIN 3.2 g/dL (3.4-5.0); ANION GAP 8 mmol/L (5-15); CALCIUM 8.4 mg/dL (8.5-10.1); CHLORIDE 105 mmol/L (98-107)
[2017-04-19 08:49] LABS: ALANINE AMINOTRANSFERASE 15 U/L (12-78); ALKALINE PHOSPHATASE 70 U/L (45-117); BILIRUBIN,TOTAL 0.6 mg/dL (0.2-1.0); CREATININE 0.73 mg/dL (0.55-1.02); FREE T4 (FREE THYROXINE) 1.36 ng/dL (0.76-1.46); THYROID STIMULATING HORMONE 0.595 mIU/L (0.358-3.740); TOTAL PROTEIN 6.6 g/dL (6.4-8.2)
[2017-04-19] MEDS ORDERED: POLYETHYLENE GLYCOL 17 GM PACKET PO ONE (10:30)
[2017-04-19 13:35] VITALS: BP 143/65
[2017-04-19] MEDS: ENOXAPARIN 40 MG/0.4 ML SQ SCH (14:00)
[2017-04-19] MEDS: NICOTINE 7 MG/24 HR PATCH.TD24 TD SCH (14:00)
[2017-04-19] MEDS: ATORVASTATIN 10 MG TABLET PO SCH (21:08)
[2017-04-19] MEDS: KETOROLAC 30 MG/1 ML IVPush PRN (21:12)
[2017-04-19 21:19] VITALS: BP 149/66
[2017-04-20 03:47] VITALS: BP 153/74
[2017-04-20] MEDS: KETOROLAC 30 MG/1 ML IVPush PRN (04:02)
[2017-04-20 06:51] VITALS: BP 150/71
[2017-04-20] MEDS: HYDROcodone/APAP 10/325 MG TABLET PO PRN ×2 (07:55→13:01)
[2017-04-20] MEDS: MULTIVITS,STRESS FORMULA 1 TABLET PO SCH (07:58)
[2017-04-20] MEDS: PANTOPROZOLE 40MG TABLET PO SCH (07:58)
[2017-04-20] MEDS: AMLODIPINE 5 MG TABLET PO SCH (07:59)
[2017-04-20] MEDS: LACTOBACILLUS CHEW TABLET PO SCH (07:59)
[2017-04-20] MEDS: CLOPIDOGREL 75 MG TABLET PO SCH (07:59)
[2017-04-20] MEDS: MAGNESIUM OXIDE 400 MG TABLET PO SCH (07:59)
[2017-04-20] MEDS: MULTIVITAMIN 1 TABLET PO SCH (07:59)
[2017-04-20] MEDS: CITALOPRAM 10 MG TABLET PO SCH (07:59)
[2017-04-20] MEDS: LISINOPRIL 20 MG TABLET PO SCH (07:59)
[2017-04-20 08:06] LABS: BASOPHILS # (AUTO) 0.03 x10^3/uL (0-0.1); BASOPHILS % (AUTO) 0 % (0-1); EOSINOPHILS # (AUTO) 0.04 x10^3/uL (0-0.4); EOSINOPHILS % (AUTO) 1 % (1-7); LYMPHOCYTES % (AUTO) 29 % (22-44); MD NO; MEAN CORPUSCULAR HEMOGLOBIN 32.8 pg (27.0-34.8); MEAN CORPUSCULAR HGB CONC 33.4 g/dL (32.4-35.8); MEAN CORPUSCULAR VOLUME 98.1 fL (80-100); MONOCYTES % (AUTO) 7 % (2-9); NEUTROPHILS % (AUTO) 63 % (42-75); PLATELET COUNT 185 x10^3/uL (130-400); RED BLOOD COUNT 3.33 x10^6/uL (3.82-5.3); RED CELL DISTRIBUTION WIDTH 15.2 % (9.6-15.2)
[2017-04-20 08:13] LABS: ANION GAP 8 mmol/L (5-15); CALCIUM 8.2 mg/dL (8.5-10.1); CHLORIDE 109 mmol/L (98-107); CREATININE 0.55 mg/dL (0.55-1.02)
[2017-04-20] MEDS: ALBUTEROL/IPRATROPIUM 2.5MG/0.5MG, 3 ML NPPB SCH (09:28)
== END 2017-04-20 13:21 | disposition home or self-care (01) | DRG 884 ==
LOC: ED 10:59 → EDIP 12:54 → 3NE 14:37
PROVIDERS: ADMIT Internal Medicine; ATTEND Internal Medicine
PROC: 0T9B70Z Drainage of Bladder with Drainage Device, Via Natural or Artificial Opening (ICD-10-PCS; principal; 2017-04-18)
DX: F03.90 Unspecified dementia, unspecified severity, without behavioral disturbance, psychotic disturbance, mood disturbance, and anxiety (principal); G93.41 Metabolic encephalopathy; E44.0 Moderate protein-calorie malnutrition; Z99.81 Dependence on supplemental oxygen; N39.0 Urinary tract infection, site not specified; M41.9 Scoliosis, unspecified; J44.9 Chronic obstructive pulmonary disease, unspecified; D72.829 Elevated white blood cell count, unspecified; R73.9 Hyperglycemia, unspecified; I11.9 Hypertensive heart disease without heart failure; E78.5 Hyperlipidemia, unspecified; I25.10 Atherosclerotic heart disease of native coronary artery without angina pectoris; Z66 Do not resuscitate; Z79.891 Long term (current) use of opiate analgesic; Z80.3 Family history of malignant neoplasm of breast; Z85.3 Personal history of malignant neoplasm of breast; Z87.442 Personal history of urinary calculi; Z90.13 Acquired absence of bilateral breasts and nipples; Z90.710 Acquired absence of both cervix and uterus; Z91.81 History of falling; Z95.5 Presence of coronary angioplasty implant and graft; Z99.3 Dependence on wheelchair; Z91.041 Radiographic dye allergy status; Z88.0 Allergy status to penicillin; Z88.2 Allergy status to sulfonamides; Z88.8 Allergy status to other drugs, medicaments and biological substances; Z72.0 Tobacco use; Z71.6 Tobacco abuse counseling; T40.605A Adverse effect of unspecified narcotics, initial encounter
CPT/HCPCS: 36415; 70450; 71010; 74000; 80048; 80053; 80307; 81003; 83605; 83735; 84100; 84439; 84443; 85025; 87040; 94640; 96361; 96365; J1650; J1885; J7620; G0479; J0713; J7030

== ENCOUNTER 2017-05-04 20:10 | Inpatient (IN) | payer MEDICARE, MEDICAID ==
[~2017-05-04] VITALS: Ht 157.5 cm; Wt 50.6 kg
[~2017-05-04 20:10] MED LIST changes: +ESOM40CA PO
[2017-05-04] MEDS ORDERED: NITR0.4T28 SL (20:39)
[2017-05-04] MEDS ORDERED: DICY10CA3 PO (20:39)
[2017-05-04] MEDS ORDERED: SODIUM CHLORIDE 0.9%, 500ML IVBOLUS ONE (21:00)
[2017-05-04] MEDS ORDERED: ONDANSETRON 2MG/ML, 2ML IVPush ONE (21:00)
[2017-05-04 21:08] LABS: BASOPHILS % (AUTO) 0 % (0-1); EOSINOPHILS % (AUTO) 0 % (1-7); LYMPHOCYTES # (AUTO) 1.01 x10^3/uL (1-3.4); LYMPHOCYTES % (AUTO) 8 % (22-44); MD NO; MEAN CORPUSCULAR HEMOGLOBIN 32.5 pg (27.0-34.8); MEAN CORPUSCULAR HGB CONC 33.4 g/dL (32.4-35.8); MEAN CORPUSCULAR VOLUME 97.1 fL (80-100); MEAN PLATELET VOLUME 8.2 fL (7.4-10.4); MONOCYTES % (AUTO) 2 % (2-9); NEUTROPHILS # (AUTO) 10.93 x10^3/uL (1.8-6.8); NEUTROPHILS % (AUTO) 90 % (42-75); PLATELET COUNT 371 x10^3/uL (130-400); RED BLOOD COUNT 4.28 x10^6/uL (3.82-5.3); RED CELL DISTRIBUTION WIDTH 14.6 % (9.6-15.2)
[2017-05-04 21:18] LABS: MICROSCOPIC INDICATED
[2017-05-04 21:22] LABS: TROPONIN I < 0.015 ng/mL (0.000-0.045)
[2017-05-04 21:33] LABS: ALANINE AMINOTRANSFERASE 25 U/L (12-78); ALBUMIN 4.2 g/dL (3.4-5.0); ANION GAP 11 mmol/L (5-15); CALCIUM 9.4 mg/dL (8.5-10.1); CHLORIDE 98 mmol/L (98-107)
[2017-05-04 21:36] LABS: ALKALINE PHOSPHATASE 87 U/L (45-117); BILIRUBIN,TOTAL 0.8 mg/dL (0.2-1.0); CREATININE 0.75 mg/dL (0.55-1.02); TOTAL PROTEIN 7.8 g/dL (6.4-8.2)
[2017-05-04 21:41] LABS: CULTURE INDICATED? NO
[2017-05-04 23:00] VITALS: BP 217/85
[2017-05-04] MEDS ORDERED: DOCUSATE 100 MG CAPSULE PO PRN ×2 (23:00)
[2017-05-04] MEDS ORDERED: ONDANSETRON ODT 4 MG PO PRN (23:00)
[2017-05-04] MEDS ORDERED: ONDANSETRON 2MG/ML, 2ML IVPush PRN (23:00)
[2017-05-04] MEDS ORDERED: ASA/APAP/ CAFFEINE TABLET PO PRN (23:00)
[2017-05-04] MEDS ORDERED: DICYCLOMINE 10 MG CAPSULE PO PRN (23:00)
[2017-05-04] MEDS ORDERED: POLYETHYLENE GLYCOL 17 GM PACKET PO PRN ×2 (23:00)
[2017-05-04] MEDS ORDERED: BISACODYL 10 MG SUPP PR PRN (23:00)
[2017-05-04] MEDS ORDERED: ALBUTEROL SULFATE 2.5MG/0.5ML NEB PRN (23:00)
[2017-05-04 23:52] LABS: FOLATE LEVEL > 20.0 ng/mL (3.1-17.5)
[2017-05-05] MEDS: ENOXAPARIN 40 MG/0.4 ML SQ SCH ×2 (01:57→20:49)
[2017-05-05] MEDS: SODIUM CHLORIDE 0.9% 1,000 ML IV SCH ×2 (01:58→14:00)
[2017-05-05 02:30] VITALS: BP 155/85
[2017-05-05] MEDS: ENALAPRILAT 1.25 MG/ML, 2ML IVPush PRN ×2 (02:48→18:13)
[2017-05-05 05:00] VITALS: BP 150/77
[2017-05-05] MEDS: METOPROLOL SUCCINATE 50 MG TAB.ER.24H PO SCH (05:06)
[2017-05-05] MEDS: ACETAMINOPHEN 325 MG TABLET PO PRN ×3 (05:06→15:46)
[2017-05-05 05:38] LABS: BASOPHILS # (AUTO) 0.02 x10^3/uL (0-0.1); BASOPHILS % (AUTO) 0 % (0-1); EOSINOPHILS # (AUTO) 0.01 x10^3/uL (0-0.4); EOSINOPHILS % (AUTO) 0 % (1-7); LYMPHOCYTES # (AUTO) 1.79 x10^3/uL (1-3.4); LYMPHOCYTES % (AUTO) 11 % (22-44); MD NO; MEAN CORPUSCULAR HEMOGLOBIN 32.5 pg (27.0-34.8); MEAN CORPUSCULAR HGB CONC 33.2 g/dL (32.4-35.8); MEAN PLATELET VOLUME 8.6 fL (7.4-10.4); MONOCYTES # (AUTO) 1.04 x10^3/uL (0.2-0.8); MONOCYTES % (AUTO) 6 % (2-9); NEUTROPHILS # (AUTO) 14.02 x10^3/uL (1.8-6.8); NEUTROPHILS % (AUTO) 83 % (42-75); PLATELET COUNT 361 x10^3/uL (130-400); RED BLOOD COUNT 4.56 x10^6/uL (3.82-5.3); RED CELL DISTRIBUTION WIDTH 14.9 % (9.6-15.2)
[2017-05-05 05:46] LABS: ANION GAP 8 mmol/L (5-15); CALCIUM 9.1 mg/dL (8.5-10.1); CHLORIDE 98 mmol/L (98-107)
[2017-05-05 07:59] VITALS: BP 182/78
[2017-05-05] MEDS ORDERED: IPRATROPIUM 0.5 MG/2.5 ML INHA HHN SCH ×2 (09:00→13:25)
[2017-05-05] MEDS: TEMPLATE NON-FORMULARY MED. (Albuterol Sulfate (Proair Hfa) 1 PUFF) IH SCH ×2 (09:00→20:49)
[2017-05-05] MEDS: CITALOPRAM 10 MG TABLET PO SCH (09:17)
[2017-05-05] MEDS: MULTIVITAMIN 1 TABLET PO SCH (09:17)
[2017-05-05] MEDS: MULTIVITS,STRESS FORMULA 1 TABLET PO SCH (09:17)
[2017-05-05] MEDS: CLOPIDOGREL 75 MG TABLET PO SCH (09:18)
[2017-05-05] MEDS: LACTOBACILLUS CHEW TABLET PO SCH (09:18)
[2017-05-05] MEDS: AMLODIPINE 5 MG TABLET PO SCH ×2 (09:18→20:34)
[2017-05-05] MEDS: MAGNESIUM OXIDE 400 MG TABLET PO SCH (09:18)
[2017-05-05] MEDS: LISINOPRIL 20 MG TABLET PO SCH ×2 (09:18→20:35)
[2017-05-05] MEDS ORDERED: IBUPROFEN 200 MG TABLET PO PRN (11:00)
[2017-05-05] MEDS: KETOROLAC 30 MG/1 ML IM PRN ×2 (13:35→20:29)
[2017-05-05] MEDS ORDERED: IPRATROPIUM 0.5 MG/2.5 ML INHA NPPB SCH (15:30)
[2017-05-05] MEDS: IBUPROFEN 200 MG TABLET PO PRN ×2 (16:43→22:36)
[2017-05-05 18:01] VITALS: BP 181/71
[2017-05-05 18:58] VITALS: BP 153/70
[2017-05-05] MEDS: ATORVASTATIN 10 MG TABLET PO SCH (20:34)
[2017-05-06] MEDS: IPRATROPIUM 0.5 MG/2.5 ML INHA NPPB SCH ×4 (03:00→19:05)
[2017-05-06 03:46] VITALS: BP_SYST 163; BP_SYST 166; BP_DIAS 68; BP_DIAS 86
[2017-05-06 05:20] VITALS: BP 144/69
[2017-05-06] MEDS: METOPROLOL SUCCINATE 50 MG TAB.ER.24H PO SCH (06:24)
[2017-05-06 08:36] VITALS: BP 179/64
[2017-05-06] MEDS: TEMPLATE NON-FORMULARY MED. (Albuterol Sulfate (Proair Hfa) 1 PUFF) IH SCH ×2 (08:39→21:00)
[2017-05-06] MEDS: AMLODIPINE 5 MG TABLET PO SCH ×2 (09:00→21:10)
[2017-05-06] MEDS: MULTIVITS,STRESS FORMULA 1 TABLET PO SCH (09:00)
[2017-05-06] MEDS: LISINOPRIL 20 MG TABLET PO SCH ×2 (09:01→21:10)
[2017-05-06] MEDS: LACTOBACILLUS CHEW TABLET PO SCH (09:01)
[2017-05-06] MEDS: MAGNESIUM OXIDE 400 MG TABLET PO SCH (09:01)
[2017-05-06] MEDS: MULTIVITAMIN 1 TABLET PO SCH (09:01)
[2017-05-06] MEDS: CITALOPRAM 10 MG TABLET PO SCH (09:01)
[2017-05-06] MEDS: KETOROLAC 30 MG/1 ML IM PRN (09:02)
[2017-05-06] MEDS ORDERED: NS + 20MEQ KCL 1,000 ML IV SCH (11:00)
[2017-05-06] MEDS: CLOPIDOGREL 75 MG TABLET PO SCH (11:11)
[2017-05-06] MEDS: HYDROcodone/APAP 5/325 TABLET PO PRN ×2 (11:12→21:09)
[2017-05-06] MEDS: METHADONE 5 MG TABLET PO SCH ×3 (12:19→21:13)
[2017-05-06] MEDS ORDERED: IPRATROPIUM 0.5 MG/2.5 ML INHA NPPB PRN (19:30)
[2017-05-06 19:45] VITALS: BP 157/61
[2017-05-06] MEDS: ATORVASTATIN 10 MG TABLET PO SCH (21:10)
[2017-05-06] MEDS: ENOXAPARIN 30 MG/0.3 ML SQ SCH (21:12)
[2017-05-07 01:55] VITALS: BP 96/54
[2017-05-07] MEDS: METOPROLOL SUCCINATE 50 MG TAB.ER.24H PO SCH (06:14)
[2017-05-07] MEDS: HYDROcodone/APAP 5/325 TABLET PO PRN ×2 (06:14→19:39)
[2017-05-07 07:21] VITALS: BP 127/55
[2017-05-07] MEDS: MULTIVITAMIN 1 TABLET PO SCH (08:47)
[2017-05-07] MEDS: MULTIVITS,STRESS FORMULA 1 TABLET PO SCH (08:47)
[2017-05-07] MEDS: CLOPIDOGREL 75 MG TABLET PO SCH (08:47)
[2017-05-07] MEDS: LISINOPRIL 20 MG TABLET PO SCH ×2 (08:47→19:41)
[2017-05-07] MEDS: MAGNESIUM OXIDE 400 MG TABLET PO SCH (08:48)
[2017-05-07] MEDS: AMLODIPINE 5 MG TABLET PO SCH ×2 (08:48→19:40)
[2017-05-07] MEDS: LACTOBACILLUS CHEW TABLET PO SCH (08:48)
[2017-05-07] MEDS: CITALOPRAM 10 MG TABLET PO SCH (08:48)
[2017-05-07] MEDS: TEMPLATE NON-FORMULARY MED. (Albuterol Sulfate (Proair Hfa) 1 PUFF) IH SCH ×2 (09:00→19:41)
[2017-05-07] MEDS: METHADONE 5 MG TABLET PO SCH ×2 (10:02→16:00)
[2017-05-07 14:45] VITALS: BP 146/52
[2017-05-07] MEDS: ATORVASTATIN 10 MG TABLET PO SCH (19:40)
[2017-05-07] MEDS: ENOXAPARIN 30 MG/0.3 ML SQ SCH (19:41)
[2017-05-07 19:43] VITALS: BP 149/63
[2017-05-07] MEDS: HYDROcodone/APAP 5/325 TABLET PO SCH (20:30)
[2017-05-07] MEDS ORDERED: METHOCARBAMOL 500 MG TABLET PO PRN (20:30)
[2017-05-07] MEDS: GABAPENTIN 300 MG CAPSULE PO SCH (20:50)
[2017-05-07] MEDS: POLYETHYLENE GLYCOL 17 GM PACKET PO SCH (20:50)
[2017-05-08] MEDS: HYDROcodone/APAP 5/325 TABLET PO SCH ×4 (02:30→21:24)
[2017-05-08 02:45] VITALS: BP 143/74
[2017-05-08 05:09] LABS: CREATININE 0.67 mg/dL (0.55-1.02)
[2017-05-08 08:22] VITALS: BP 178/66
[2017-05-08] MEDS: SENNA/DOCUSATE TABLET PO SCH (08:27)
[2017-05-08] MEDS: AMLODIPINE 5 MG TABLET PO SCH ×2 (08:27→21:25)
[2017-05-08] MEDS: LACTOBACILLUS CHEW TABLET PO SCH (08:27)
[2017-05-08] MEDS: CLOPIDOGREL 75 MG TABLET PO SCH (08:27)
[2017-05-08] MEDS: MAGNESIUM OXIDE 400 MG TABLET PO SCH (08:27)
[2017-05-08] MEDS: METOPROLOL SUCCINATE 50 MG TAB.ER.24H PO SCH (08:27)
[2017-05-08] MEDS: MULTIVITAMIN 1 TABLET PO SCH (08:27)
[2017-05-08] MEDS: MULTIVITS,STRESS FORMULA 1 TABLET PO SCH (08:27)
[2017-05-08] MEDS: LISINOPRIL 20 MG TABLET PO SCH ×2 (08:27→21:25)
[2017-05-08] MEDS: CITALOPRAM 10 MG TABLET PO SCH (08:27)
[2017-05-08] MEDS: GABAPENTIN 300 MG CAPSULE PO SCH ×4 (08:27→21:25)
[2017-05-08] MEDS: POLYETHYLENE GLYCOL 17 GM PACKET PO SCH (08:28)
[2017-05-08] MEDS: TEMPLATE NON-FORMULARY MED. (Albuterol Sulfate (Proair Hfa) 1 PUFF) IH SCH ×2 (08:40→21:00)
[2017-05-08 14:08] VITALS: BP 160/75
[2017-05-08] MEDS ORDERED: BISACODYL 10 MG SUPP PR PRN (16:00)
[2017-05-08] MEDS ORDERED: MAGNESIUM CITRATE 300ML ORAL SOL PO ONE (16:00)
[2017-05-08] MEDS ORDERED: methylPREDNISolone 4mg DOSE PACK PO SCH (16:00)
[2017-05-08 18:37] VITALS: BP 121/54
[2017-05-08] MEDS ORDERED: ENOXAPARIN 40 MG/0.4 ML SQ SCH (21:00)
[2017-05-08] MEDS: ATORVASTATIN 10 MG TABLET PO SCH (21:25)
[2017-05-09 02:21] VITALS: BP 154/65
[2017-05-09] MEDS: HYDROcodone/APAP 5/325 TABLET PO SCH ×3 (02:30→13:26)
[2017-05-09] MEDS: GABAPENTIN 300 MG CAPSULE PO SCH ×2 (06:22→13:27)
[2017-05-09] MEDS: METOPROLOL SUCCINATE 50 MG TAB.ER.24H PO SCH (06:22)
[2017-05-09 06:47] LABS: ANION GAP 6 mmol/L (5-15); CALCIUM 8.3 mg/dL (8.5-10.1); CHLORIDE 101 mmol/L (98-107); CREATININE 0.58 mg/dL (0.55-1.02)
[2017-05-09 08:34] VITALS: BP 119/62
[2017-05-09] MEDS: LISINOPRIL 20 MG TABLET PO SCH (08:36)
[2017-05-09] MEDS: MAGNESIUM OXIDE 400 MG TABLET PO SCH (08:36)
[2017-05-09] MEDS: TEMPLATE NON-FORMULARY MED. (Albuterol Sulfate (Proair Hfa) 1 PUFF) IH SCH (08:36)
[2017-05-09] MEDS: CLOPIDOGREL 75 MG TABLET PO SCH (08:36)
[2017-05-09] MEDS: LACTOBACILLUS CHEW TABLET PO SCH (08:36)
[2017-05-09] MEDS: CITALOPRAM 10 MG TABLET PO SCH (08:36)
[2017-05-09] MEDS: AMLODIPINE 5 MG TABLET PO SCH (08:36)
[2017-05-09] MEDS: MULTIVITS,STRESS FORMULA 1 TABLET PO SCH (08:36)
[2017-05-09] MEDS: SENNA/DOCUSATE TABLET PO SCH (08:37)
[2017-05-09] MEDS: POLYETHYLENE GLYCOL 17 GM PACKET PO SCH (08:37)
[2017-05-09] MEDS ORDERED: METH4TAB2 PO (12:39)
[2017-05-09] MEDS ORDERED: SENN1TAB7 PO (12:39)
[2017-05-09] MEDS ORDERED: GABA300C10 PO (12:39)
[2017-05-09] MEDS ORDERED: POLY17PO5 PO (12:39)
[2017-05-09] MEDS ORDERED: METH500T7 PO (12:39)
== END 2017-05-09 15:20 | disposition home or self-care (01) | DRG 92 ==
LOC: ED 21:50 → EDIP 22:47 → 4EST 05-05 00:06 → 4WST 05-05 00:16 → DCLOUNGE 05-09 15:10
PROVIDERS: ADMIT Internal Medicine; ATTEND Family Medicine
PROC: 0T9B70Z Drainage of Bladder with Drainage Device, Via Natural or Artificial Opening (ICD-10-PCS; principal; 2017-05-04)
DX: G92 Toxic encephalopathy (principal); J96.10 Chronic respiratory failure, unspecified whether with hypoxia or hypercapnia; E86.0 Dehydration; E87.1 Hypo-osmolality and hyponatremia; M41.9 Scoliosis, unspecified; I11.9 Hypertensive heart disease without heart failure; E78.5 Hyperlipidemia, unspecified; F17.210 Nicotine dependence, cigarettes, uncomplicated; G89.29 Other chronic pain; I25.10 Atherosclerotic heart disease of native coronary artery without angina pectoris; J43.9 Emphysema, unspecified; K59.00 Constipation, unspecified; Z66 Do not resuscitate; Z82.49 Family history of ischemic heart disease and other diseases of the circulatory system; Z85.3 Personal history of malignant neoplasm of breast; Z90.710 Acquired absence of both cervix and uterus; Z95.5 Presence of coronary angioplasty implant and graft; Z88.3 Allergy status to other anti-infective agents; Z88.0 Allergy status to penicillin; Z88.8 Allergy status to other drugs, medicaments and biological substances; Z91.018 Allergy to other foods; T50.905A Adverse effect of unspecified drugs, medicaments and biological substances, initial encounter; Y92.89 Other specified places as the place of occurrence of the external cause; M54.9 Dorsalgia, unspecified
CPT/HCPCS: 36415; 70450; 71045; 74176; 80048; 80053; 81001; 82306; 82565; 82607; 82728; 82746; 83540; 83550; 83735; 84439; 84443; 84466; 84484; 85025; 93005; 96360; J1650; J1885; J3480; J7509; Q0162; J7030; J7040

== ENCOUNTER 2017-05-12 18:49 | Inpatient (IN) | payer MEDICARE, MEDICAID ==
[~2017-05-12] VITALS: Ht 154.9 cm; Wt 49.0 kg
[~2017-05-12 18:49] MED LIST changes: +DICY10CA3 PO; +GABA300C10 PO; +METH4TAB2 PO; +METH500T7 PO; +NITR0.4T28 SL; +POLY17PO5 PO; +SENN1TAB7 PO
[2017-05-12 20:07] LABS: CULTURE INDICATED? YES; MICROSCOPIC AUTO
[2017-05-12 20:14] LABS: MEAN CORPUSCULAR HEMOGLOBIN 31.9 pg (27.0-34.8); MEAN CORPUSCULAR VOLUME 96.7 fL (80-100); MEAN PLATELET VOLUME 8.4 fL (7.4-10.4); PLATELET COUNT 365 x10^3/uL (130-400); RED BLOOD COUNT 4.21 x10^6/uL (3.82-5.3); RED CELL DISTRIBUTION WIDTH 14.7 % (9.6-15.2)
[2017-05-12 20:26] LABS: ALBUMIN 3.5 g/dL (3.4-5.0); ANION GAP 8 mmol/L (5-15); CALCIUM 9.1 mg/dL (8.5-10.1); CHLORIDE 96 mmol/L (98-107)
[2017-05-12 20:29] LABS: MD YES
[2017-05-12 20:31] LABS: <PLATELET ESTIMATE> ADEQUATE; <PLT MORPHOLOGY> NORMAL PLT MORPH; <RBC MORPHOLOGY> NORMAL; ALANINE AMINOTRANSFERASE 28 U/L (12-78); ALKALINE PHOSPHATASE 86 U/L (45-117); BAND#(MANUAL) 2.82 x10^3/uL; BANDS%(MANUAL) 22 % (0-7); BILIRUBIN,TOTAL 0.8 mg/dL (0.2-1.0); CREATININE 0.82 mg/dL (0.55-1.02); LYMPH#(MANUAL) 1.66 x10^3/uL (1-3.4); LYMPHS% (MANUAL) 13 % (22-44); METAMYELOCYTES# (MANUAL) 0.26 x10^3/uL (0-0); METAMYELOCYTES% (MANUAL) 2 % (0-1); MONOS#(MANUAL) 1.28 x10^3/uL (0.3-2.7); MONOS% (MANUAL) 10 % (2-9); SEG#(MANUAL) 6.78 x10^3/uL (1.8-6.8); SEGS% (MANUAL) 53 % (42-75); TOTAL PROTEIN 7.3 g/dL (6.4-8.2); TROPONIN I < 0.015 ng/mL (0.000-0.045)
[2017-05-12] MEDS ORDERED: SODIUM CHLORIDE 0.9% 1,000ML IVBOLUS ONE ×2 (21:30)
[2017-05-12] MEDS ORDERED: CEFTRIAXONE PMX 1GM/50ML 50 ML ONE (21:42)
[2017-05-12] MEDS ORDERED: SODIUM CHLORIDE 0.9% 1,000 ML IV ONE (21:50)
[2017-05-12] MEDS ORDERED: AZITHROMYCIN 500 MG in SODIUM CHLORIDE 0.9% 250 ML IV ONE (22:00)
[2017-05-12] MEDS ORDERED: ONDANSETRON 2MG/ML, 2ML IVPush PRN (22:00)
[2017-05-12] MEDS ORDERED: CEFTRIAXONE PMX 1GM/50ML 50 ML IV ONE (22:00)
[2017-05-12] MEDS ORDERED: ALBUTEROL SULFATE 2.5 MG/3 ML NPPB ONE (22:00)
[2017-05-12] MEDS ORDERED: BUDESONIDE 0.5 MG/2 ML INHA INH SCH (23:30)
[2017-05-13] MEDS ORDERED: ENOXAPARIN 40 MG/0.4 ML SQ SCH
[2017-05-13] MEDS: AZITHROMYCIN 500 MG in SODIUM CHLORIDE 0.9% 250 ML IV SCH ×2 (00:16→23:07)
[2017-05-13] MEDS ORDERED: ENOXAPARIN 40 MG/0.4 ML ONE (01:11)
[2017-05-13 02:15] VITALS: BP 156/54
[2017-05-13] MEDS ORDERED: ALBUTEROL/IPRATROPIUM 2.5MG/0.5MG, 3 ML NPPB SCH (03:00)
[2017-05-13] MEDS: ALBUTEROL/IPRATROPIUM 2.5MG/0.5MG, 3 ML NPPB SCH ×4 (07:08→20:00)
[2017-05-13] MEDS ORDERED: ACETAMINOPHEN 650 MG SUPP PR PRN (10:00)
[2017-05-13] MEDS ORDERED: MORPHINE SULFATE 4 MG/ML, 1ML ONE (12:07)
[2017-05-13] MEDS ORDERED: MORPHINE SULFATE 4 MG/ML, 1ML IVPush ONE (12:30)
[2017-05-13] MEDS ORDERED: DIGOXIN 0.25 MG/ML, 2ML IVPush ONE (13:00)
[2017-05-13] MEDS: MORPHINE SULFATE 4 MG/ML, 1ML IVPush PRN ×2 (15:27→21:32)
[2017-05-13] MEDS: HYDROcodone/APAP 5/325 TABLET PO PRN (17:24)
[2017-05-13 19:25] VITALS: BP 145/63
[2017-05-13] MEDS ORDERED: DOCUSATE 100 MG CAPSULE PO PRN (20:30)
[2017-05-13] MEDS ORDERED: ASA/APAP/ CAFFEINE TABLET PO PRN (20:30)
[2017-05-13] MEDS ORDERED: ALBUTEROL SULFATE 2.5MG/0.5ML NEB PRN (20:30)
[2017-05-13] MEDS ORDERED: ALBUTEROL SULFATE 2.5 MG/3 ML NPPB SCH (21:00)
[2017-05-13] MEDS: CEFTRIAXONE 2,000 MG in DEXTROSE 5% 50 ML IV SCH (21:33)
[2017-05-13] MEDS: GABAPENTIN 300 MG CAPSULE PO SCH (21:40)
[2017-05-13] MEDS ORDERED: CEFTRIAXONE PMX 2GM/50ML 50 ML IV SCH (22:00)
[2017-05-14 02:55] VITALS: BP 161/73
[2017-05-14] MEDS: MORPHINE SULFATE 4 MG/ML, 1ML IVPush PRN ×6 (03:02→18:06)
[2017-05-14] MEDS ORDERED: CALCIUM CARBONATE 500 MG TAB.CHEW PO PRN (06:00)
[2017-05-14] MEDS: GABAPENTIN 300 MG CAPSULE PO SCH ×4 (06:04→20:39)
[2017-05-14] MEDS: METOPROLOL SUCCINATE 50 MG TAB.ER.24H PO SCH (06:04)
[2017-05-14] MEDS: ALBUTEROL/IPRATROPIUM 2.5MG/0.5MG, 3 ML NPPB SCH ×4 (07:00→20:00)
[2017-05-14] MEDS ORDERED: IPRATROPIUM 0.5 MG/2.5 ML INHA NPPB SCH (09:00)
[2017-05-14] MEDS: CITALOPRAM 10 MG TABLET PO SCH (09:00)
[2017-05-14] MEDS: DOXYCYCLINE 100MG TABLET PO SCH ×2 (13:00→20:39)
[2017-05-14] MEDS ORDERED: morphine SULFATE 125 MG in SODIUM CHLORIDE 0.9% 237.5 ML IV PRN (13:35)
[2017-05-14] MEDS ORDERED: ATROPINE OPHTH SOLN 1%, 5ML BC PRN (14:00)
[2017-05-14] MEDS: LORazepam 2 MG/ML, 1ML IVPush PRN (14:20)
[2017-05-14 18:13] VITALS: BP 145/68
[2017-05-14] MEDS: CEFTRIAXONE 2,000 MG in DEXTROSE 5% 50 ML IV SCH (22:02)
[2017-05-15 02:53] VITALS: BP 148/54
[2017-05-15] MEDS: MORPHINE SULFATE 4 MG/ML, 1ML IVPush PRN ×4 (03:07→15:42)
[2017-05-15] MEDS: GABAPENTIN 300 MG CAPSULE PO SCH ×3 (06:00→15:42)
[2017-05-15 06:46] VITALS: BP 187/59
[2017-05-15] MEDS: ALBUTEROL/IPRATROPIUM 2.5MG/0.5MG, 3 ML NPPB SCH ×3 (07:12→15:00)
[2017-05-15] MEDS: METOPROLOL SUCCINATE 50 MG TAB.ER.24H PO SCH (07:30)
[2017-05-15 07:34] VITALS: BP 167/64
[2017-05-15] MEDS: DOXYCYCLINE 100MG TABLET PO SCH (09:44)
[2017-05-15] MEDS: CITALOPRAM 10 MG TABLET PO SCH (09:45)
[2017-05-15] MEDS: LORazepam 2 MG/ML, 1ML IVPush PRN (10:27)
[2017-05-15 12:36] VITALS: BP 157/59
[2017-05-15] MEDS: HYDROcodone/APAP 5/325 TABLET PO PRN (15:42)
[2017-05-15] MEDS ORDERED: DOXY100T10 PO (16:31)
[2017-05-15] MEDS ORDERED: CEFD300C37 PO (16:31)
[2017-05-15] MEDS ORDERED: LISI40TA PO (16:32)
== END 2017-05-15 17:03 | disposition home or self-care (01) | DRG 871 ==
LOC: ED 20:18 → EDIP 21:50 → CCU 05-13 02:09 → 3NW 05-13 17:00
PROVIDERS: ADMIT Internal Medicine; ATTEND Internal Medicine
PROC: 0T9B70Z Drainage of Bladder with Drainage Device, Via Natural or Artificial Opening (ICD-10-PCS; principal; 2017-05-12)
DX: A41.9 Sepsis, unspecified organism (principal); J15.9 Unspecified bacterial pneumonia; J96.21 Acute and chronic respiratory failure with hypoxia; I48.91 Unspecified atrial fibrillation; Z99.81 Dependence on supplemental oxygen; J44.0 Chronic obstructive pulmonary disease with (acute) lower respiratory infection; N30.90 Cystitis, unspecified without hematuria; E78.5 Hyperlipidemia, unspecified; F32.9 Major depressive disorder, single episode, unspecified; F41.9 Anxiety disorder, unspecified; I10 Essential (primary) hypertension; I25.10 Atherosclerotic heart disease of native coronary artery without angina pectoris; M41.9 Scoliosis, unspecified; R29.6 Repeated falls; Z51.5 Encounter for palliative care; Z66 Do not resuscitate; Z85.3 Personal history of malignant neoplasm of breast; Z90.13 Acquired absence of bilateral breasts and nipples; Z90.710 Acquired absence of both cervix and uterus; Z95.5 Presence of coronary angioplasty implant and graft; Z82.49 Family history of ischemic heart disease and other diseases of the circulatory system
CPT/HCPCS: 36415; 36600; 70450; 71045; 80053; 81001; 82803; 83605; 84145; 84484; 85025; 87040; 87077; 87081; 87086; 87186; 93005; 94640; 96365; 96372; J0456; J0696; J1650; J7613; J7620; J1160; J2060; J7030; J7050